=== PATIENT | female | born 1960 | race Caucasian/White ===

== ENCOUNTER 2016-07-20 08:21 | Emergency (ER) | payer BC ==
[2016-07-20 08:52] VITALS: BP 145/93; PULSE 106; RESP 20; TEMP 98.6; O2SAT 96
--- NOTE | 2016-07-20 08:54 | UCPHY ---
H & P Time Seen by Provider: 07/20/16 08:41 Patient Type: New HPI/ROS: This patient presents with a chief complaint of productive cough and severe with nasal and facial congestion for the past 4 days. Early on in the illness she had a fever as high as 101.9 but has had no fever yesterday or today. She has myalgias primarily involving her back with only mild headache. She complains of bilateral ear pain but denies sore throat. She has been coughing a lot and believes that she has been wheezing as well the cough is productive. She describes chest tightness involving the entire precordium. The patient has had a flu shot. REVIEW OF SYSTEMS: Constitutional: Malaise, fatigue, early fever now resolved Eyes: No complaints ENT: Bilateral ear pain, nasal congestion, no sore throat Respiratory: Productive cough, mild dyspnea on exertion Cardiac: Chest pressure Gastrointestinal: Not addressed Genitourinary: Not addressed Musculoskeletal: Myalgias involving primarily the back and hips. Skin: No rash Neurological: Mild headache Physical Exam: GENERAL: Well-appearing, well-nourished and in no acute distress. HEAD: Atraumatic, normocephalic. There is no tenderness to percussion over the frontal and maxillary sinuses EYES: sclera anicteric, conjunctiva are normal. ENT: TMs normal, nares congested, oropharynx clear without exudates. Moist mucous membranes. NECK: Normal range of motion, supple without there is a small enlarged lymph node in the right submental region. Carotid pulsations symmetric LUNGS: Breath sounds clear to auscultation bilaterally and equal. No wheezes rales or rhonchi. HEART: Regular rate and rhythm without murmurs, rubs or gallops. EXTREMITIES: Normal range of motion, NEUROLOGICAL: Cranial nerves II through XII grossly intact. Normal speech, normal gait. PSYCH: Normal mood, normal affect. SKIN: Warm, dry, normal turgor, no visible rashes or lesions. Constitutional: Initial Vital Signs Temperature (C) 37.0 C 07/20/16 08:50 Heart Rate 106 H 07/20/16 08:50 Respiratory Rate 20 07/20/16 08:50 Blood Pressure 145/93 H 07/20/16 08:50 O2 Sat (%) 96 07/20/16 08:50 O2 Delivery Mode Room Air Allergies/Adverse Reactions: codeine [Codeine] Allergy (Mild, Verified 07/20/16 08:38) Penicillins Allergy (Mild, Verified 07/20/16 08:38) Sulfa (Sulfonamide Antibiotics) Allergy (Mild, Verified 07/20/16 08:38) promethazine HCl [From Phenergan] Allergy (Verified 07/20/16 08:38) Vomiting Home Medications: Medication Instructions Recorded Estrogen Patch 07/18/13 Medical Decision Making Differential Diagnosis: This patient's symptoms are consistent with influenza Although they are not as severe as some. I believe that her symptoms have been attenuated by her influenza immunization. I find no evidence of pneumonia or any bacterial complication. - Data Points Laboratory Results: 07/20/16 08:40 Influenza Typ A,B (DFA) POSITIVE FOR FLU A H (NEGATIVE) Departure - Departure Disposition: Home, Routine, Self-Care Clinical Impression: Influenza A Condition: Good Instructions: Influenza (ED) Additional Instructions: Influenza generally last 7 days if your ill for more than 9 or 10 days you should be re-evaluated. If you feel that your symptoms are worsening you should be re-evaluated sooner. Try a nasal decongestant spray such as Afrin. Keep herself well hydrated but do not force herself to eat. Adult Pain & Fever Control: We recommend Acetaminophen (Tylenol) and Ibuprofen (Motrin, Advil) for pain and fever control. When fever is high or pain severe, both drugs can be used at the same time, but at different intervals. Please note the time differences. Your dose is: Acetaminophen [650]mg every 4 to 6 hours ibuprofen [600]mg every [6] hours with food OR naproxen Sodium (Aleve) [440]mg every 12 hours. Note: do not take Acetaminophen with Hydrocodone (Vicodin, Lortab) or Oxycodone (Percocet). These medications also contain Acetaminophen. No more than 3000 mg of Acetaminophen should be taken in 24 hours (for an adult) . The maximal dose of ibuprofen that it is safe in a 24-hour period is 2400 mg. You may take 400 mg every 4 hours, 600 mg every 6 hours or 800 mg every 8 hours safely. Referrals: Rosalie Thrasher MD [Primary Care Provider] - As per Instructions - PQRS PQRS Measurement: Not applicable
== END 2016-07-20 09:10 | disposition home or self-care (01) ==
LOC: CED 08:21
DX: J10.1 Influenza due to other identified influenza virus with other respiratory manifestations (principal)
CPT/HCPCS: 87400-PO; G0463-PO

== ENCOUNTER → 2017-11-10 | Outpatient (CLI) | payer BC | LOC: FIMAGING 09:17 | PROVIDERS: ATTEND Family Medicine | DX: Z12.31 Encounter for screening mammogram for malignant neoplasm of breast (principal) ==